=== PATIENT | male | born 1960 | race Caucasian/White ===

== ENCOUNTER 2016-09-22 11:42 | Outpatient (CLI) | payer MEDICARE ==
--- NOTE | 2016-09-22 12:46 | DIAGNOSTIC IMAGING REPORT ---
PROCEDURE: XR CHEST 2 VIEW INDICATION: Chest pain TECHNIQUE: PA and lateral views. COMPARISON: None. FINDINGS: Lungs are clear. Heart and mediastinum are normal. Thorax is normal. IMPRESSION: 1. Negative chest.
--- NOTE | 2016-09-22 12:48 | DIAGNOSTIC IMAGING REPORT ---
PROCEDURE: XR SINUSES 3 VIEWS OR MORE INDICATION: Pain TECHNIQUE: Five views COMPARISON: None. FINDINGS: There is opacification of maxillary sinuses. The frontal ethmoid and sphenoid sinuses are clear. IMPRESSION: 1. Bilateral maxillary sinus opacification.
== END 2016-09-22 23:00 ==
LOC: XR SRH 11:42
DX: R07.9 Chest pain, unspecified (principal); J34.89 Other specified disorders of nose and nasal sinuses

== ENCOUNTER 2016-10-04 12:17 | Outpatient (CLI) | payer MEDICARE ==
--- NOTE | 2016-10-04 13:25 | DIAGNOSTIC IMAGING REPORT ---
PROCEDURE: CT ABD/PELVIS WITH CONTRAST CLINICAL INDICATION: Left lower quadrant pain x 6 months, initial encounter TECHNIQUE: 125 ml of Isovue 300 were injected intravenously and axial images were obtained of the entire abdomen and pelvis with sagittal and coronal reformations. COMPARISON: None. FINDINGS: ABDOMEN: Lung base are clear. Normal heart size. Liver, gallbladder, pancreas, spleen, adrenal glands and kidneys are normal. Mild atherosclerosis of the aorta. Nonspecific bowel gas pattern. Old right rib fracture. Pelvis: Normal appendix. No pelvic mass, inflammatory changes or free fluid. Small fat-containing bilateral inguinal hernias. 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 IMPRESSION: 1. Small bilateral fat containing inguinal hernias All CT scans at this facility use dose modulation, iterative reconstruction, and/or weight-based dosing when appropriate to reduce radiation dose to as low as reasonably achievable.
== END 2016-10-04 23:00 ==
LOC: CT SRH 12:17
DX: R10.32 Left lower quadrant pain (principal); K40.20 Bilateral inguinal hernia, without obstruction or gangrene, not specified as recurrent